=== PATIENT | male | born 1930 | race Caucasian/White ===

== ENCOUNTER 2017-05-17 10:59 | Observation (INO) | payer MEDICARE ==
[~2017-05-17] VITALS: Ht 165.1 cm; Wt 70.0 kg
[2017-05-17 11:04] VITALS: BP 185/81; PULSE 68; RESP 15; TEMP 98; O2SAT 100
[2017-05-17 11:26] VITALS: BP_SYST 174; BP_SYST 184; BP_SYST 196; BP_DIAS 74; BP_DIAS 80; RESP 18
[2017-05-17 11:28] VITALS: RESP 18; O2SAT 97
--- NOTE | 2017-05-17 11:58 | PD ---
HPI Chief Complaint: Dizziness Time Seen by Provider: 11:22 Travel History International Travel<30 days: No Contact w/Intl Traveler<30days: No Traveled to known affect area: No History of Present Illness HPI 86 y/o male states that he feels like he is floating above his body and like he' s gonna pass out especially when he stands up over the past couple of days. He denies any associated numbness, weakness, mentation change, pain, shortness of breath or any other concurrent complaints. He denies prior history of this. He states he has not been to the hospital for 20 years could see mainly helps take care of his . He states that he has no other modifying factors. Quality is floating. Severity is with movement. PFSH Past Medical History Hypertension: Yes Medical other: Yes (macular degeneration) Triglycerides - High: Yes Past Surgical History Surgical History: No Previous Surgery Social History Alcohol Use: Yes (1 -2 glasses wine daily) Tobacco Use: No Substance Use: No Allergies-Medications (Allergen,Severity, Reaction): Coded Allergies: No Known Allergies (Unverified , 05/17/17) Review of Systems Except as stated in HPI: all other systems reviewed are Neg Physical Exam Narrative GENERAL: Well-nourished, well-developed patient. SKIN: Warm and dry. HEAD: Normocephalic and atraumatic. EYES: No injection or drainage. ENT: No nasal drainage noted. NECK: Supple, trachea midline. CARDIOVASCULAR: Regular rate and rhythm RESPIRATORY: Breath sounds equal bilaterally. No accessory muscle use. GASTROINTESTINAL: Abdomen soft, non-tender, nondistended. EXTREMITIES: No edema. NEUROLOGICAL: Awake and alert. Motor and sensory grossly within normal limits. Normal speech. Rapid alternating intact, heel to khan intact Data Data Last Documented VS Vital Signs Date Time Temp Pulse Resp B/P Pulse Ox O2 Delivery O2 Flow Rate FiO2 05/17/17 11:28 18 97 Room Air 05/17/17 11:26 75 196/74 80 174/80 71 184/74 05/17/17 11:04 98.0 Orders Magnesium (Mg) (05/17/17 11:25) Phosphorus (Po4) (05/17/17 11:25) Complete Blood Count With Diff (05/17/17 11:25) Comprehensive Metabolic Panel (05/17/17 11:25) Urinalysis - C+S If Indicated (05/17/17 11:25) Act Partial Throm Time (Ptt) (05/17/17 11:25) Prothrombin Time / Inr (Pt) (05/17/17 11:25) Electrocardiogram (05/17/17 ) Iv Access Insert/Monitor (05/17/17 11:25) Ecg Monitoring (05/17/17 11:25) Oximetry (05/17/17 11:25) Ct Brain W/O Iv Contrast(Rout) (05/17/17 ) Ckmb (Isoenzyme) Profile (05/17/17 11:26) Troponin I (05/17/17 11:26) Chest, Single Ap (05/17/17 ) CKMB (05/17/17 11:40) CKMB% (05/17/17 11:40) Admit Order (Ed Use Only) (05/17/17 15:13) Labs Laboratory Tests Test 05/17/17 05/17/17 11:40 12:40 White Blood Count 7.8 TH/MM3 Red Blood Count 4.54 MIL/MM3 Hemoglobin 14.1 GM/DL Hematocrit 41.5 % Mean Corpuscular Volume 91.6 FL Mean Corpuscular Hemoglobin 31.1 PG Mean Corpuscular Hemoglobin 33.9 % Concent Red Cell Distribution Width 12.3 % Platelet Count 260 TH/MM3 Mean Platelet Volume 8.7 FL Neutrophils (%) (Auto) 68.2 % Lymphocytes (%) (Auto) 18.2 % Monocytes (%) (Auto) 8.5 % Eosinophils (%) (Auto) 2.6 % Basophils (%) (Auto) 2.5 % Neutrophils # (Auto) 5.3 TH/MM3 Lymphocytes # (Auto) 1.4 TH/MM3 Monocytes # (Auto) 0.7 TH/MM3 Eosinophils # (Auto) 0.2 TH/MM3 Basophils # (Auto) 0.2 TH/MM3 CBC Comment DIFF FINAL Differential Comment Prothrombin Time 11.1 SEC Prothromb Time International 1.0 RATIO Ratio Activated Partial 28.4 SEC Thromboplast Time Sodium Level 138 MEQ/L Potassium Level 3.8 MEQ/L Chloride Level 98 MEQ/L Carbon Dioxide Level 32.8 MEQ/L Anion Gap 7 MEQ/L Blood Urea Nitrogen 25 MG/DL Creatinine 1.12 MG/DL Estimat Glomerular Filtration 62 ML/MIN Rate Random Glucose 104 MG/DL Calcium Level 9.2 MG/DL Phosphorus Level 4.1 MG/DL Magnesium Level 2.2 MG/DL Total Bilirubin 0.7 MG/DL Aspartate Amino Transf 30 U/L (AST/SGOT) Alanine Aminotransferase 28 U/L (ALT/SGPT) Alkaline Phosphatase 89 U/L Total Creatine Kinase 188 U/L Creatine Kinase MB 2.7 NG/ML Troponin I LESS THAN 0.02 NG/ML Total Protein 8.0 GM/DL Albumin 4.2 GM/DL Urine Color YELLOW Urine Turbidity CLEAR Urine pH 5.5 Urine Specific [place] 1.018 Urine Protein NEG mg/dL Urine Glucose (UA) NEG mg/dL Urine Ketones NEG mg/dL Urine Occult Blood NEG Urine Nitrite NEG Urine Bilirubin NEG Urine Urobilinogen LESS THAN 2.0 MG/DL Urine Leukocyte Esterase NEG Urine RBC LESS THAN 1 /hpf Urine WBC 1 /hpf Urine Squamous Epithelial <1 /hpf Cells Microscopic Urinalysis Comment CULT NOT INDICATED MDM Medical Decision Making Medical Screen Exam Complete: Yes Emergency Medical Condition: Yes Medical Record Reviewed: Yes (pmh confirmed) Interpretation(s) EKG shows NSR, no ST elevation or depression, and no arrhythmias. No significant T-wave inversions. CBC & BMP Diagram 05/17/17 11:40 Last [address] 05/17/17 0000 Signed Impressions: Service Date/Time: Wednesday, May 17, 2017 13:24 - CONCLUSION: Cerebral atrophy and chronic ischemic small vessel vasculopathy. Nic Roberts MD Chest X-Ray 05/17/17 0000 Signed Impressions: Service Date/Time: Wednesday, May 17, 2017 12:08 - CONCLUSION: No acute disease. Nic Roberts MD Differential Diagnosis Anemia, renal failure, UTI, atypical cardiac, bleed Narrative Course Will check blood work, imaging and reevaluate ED workup without emergent process, patient agrees to observation for further workup Physician Communication Physician Communication Dr. Carpenter agrees to observation Diagnosis Primary Impression: Near syncope Admitting Information Admitting Physician Requests: Observation Oneyda Roman MD May 17, 2017 11:58
[2017-05-17 12:04] LABS: AUTOMATED NEUTROPHIL # 5.3 TH/MM3 (1.8-7.7); BASOPHIL # 0.2 TH/MM3 (0-0.2); BASOPHIL % 2.5 % (0.0-2.0); EOSINOPHIL # 0.2 TH/MM3 (0-0.4); EOSINOPHIL % 2.6 % (0.0-4.0); HEMATOCRIT 41.5 % (39.0-51.0); HEMO FLAGS DIFF FINAL; LYMPH % 18.2 % (9.0-44.0); LYMPHOCYTE # 1.4 TH/MM3 (1.0-4.8); MEAN CELL VOLUME 91.6 FL (80.0-100.0); MEAN CORPUSCULAR HEMOGLOBIN 31.1 PG (27.0-34.0); MEAN CORPUSCULAR HGB CONC 33.9 % (32.0-36.0); MONO % 8.5 % (0.0-8.0); NEUT % 68.2 % (16.0-70.0); PLATELET COUNT 260 TH/MM3 (150-450); RED BLOOD COUNT 4.54 MIL/MM3 (4.50-5.90); RED CELL DISTRIBUTION WIDTH 12.3 % (11.6-17.2); WHITE BLOOD COUNT 7.8 TH/MM3 (4.0-11.0)
[2017-05-17 12:13] LABS: APTT (PATIENT) 28.4 SEC (24.3-30.1); PROTHROMBIN TIME - PATIENT 11.1 SEC (9.8-11.6)
[2017-05-17 12:25] LABS: ALKALINE PHOSPHATASE 89 U/L (45-117); TOTAL BILIRUBIN ADULT 0.7 MG/DL (0.2-1.0)
[2017-05-17 12:29] LABS: ALT (GPT) 28 U/L (12-78); ANION GAP 7 MEQ/L (5-15); AST (GOT) 30 U/L (15-37); BICARBONATE 32.8 MEQ/L (21.0-32.0); BLOOD UREA NITROGEN 25 MG/DL (7-18); CHLORIDE 98 MEQ/L (98-107); GLOMERULAR FILTRATION RATE 62 ML/MIN (>89); MAGNESIUM 2.2 MG/DL (1.5-2.5); POTASSIUM 3.8 MEQ/L (3.5-5.1); SODIUM (NA) 138 MEQ/L (136-145)
--- NOTE | 2017-05-17 12:30 | RADRPT ---
EXAM DATE/TIME: 05/17/2017 12:08 [facility] COMPARISON: No previous studies available for comparison. INDICATIONS : Palpitations/ Dizziness x 2 days MEDICAL HISTORY : Hypertension. Hypercholesterolemia. SURGICAL HISTORY : None. ENCOUNTER: Initial ACUITY: 1 day PAIN SCORE: 0/10 LOCATION: Bilateral chest FINDINGS: A single view of the chest demonstrates the lungs to be symmetrically aerated without evidence of mas s, infiltrate or effusion. The cardiomediastinal contours are unremarkable. Osseous structures are intact. CONCLUSION: No acute disease. Nic Roberts MD on May 17, 2017 at 12:28 Board Certified Radiologist. This report was verified electronically.
[2017-05-17 13:02] LABS: CREATINE KINASE 188 U/L (39-308)
[2017-05-17 13:11] LABS: BLOOD, URINE NEG (NEG); GLUCOSE,URINE NEG (NEG); KETONE, URINE NEG (NEG); NITRITE,URINE NEG (NEG); PH, URINE 5.5 (5.0-8.5); SQUAMOUS EPITHELIAL CELL URINE <1 /hpf (0-5); URINE COLOR YELLOW (YELLW/STRAW)
[2017-05-17 13:14] LABS: CKMB 2.7 NG/ML (0.5-3.6)
[2017-05-17 13:15] LABS: COMMENT (UR) CULT NOT INDICATED; CULTURE IF INDICATED CULT NOT INDICATED
--- NOTE | 2017-05-17 13:33 | RADRPT ---
EXAM DATE/TIME: 05/17/2017 13:24 [facility] COMPARISON: No previous studies available for comparison. INDICATIONS : Dizziness for two days. RADIATION DOSE: 39.54 CTDIvol (mGy) MEDICAL HISTORY : Hypertension. SURGICAL HISTORY : None. ENCOUNTER: Initial ACUITY: 2 days PAIN SCALE: 0/10 LOCATION: Bilateral head TECHNIQUE: Multiple contiguous axial images were obtained of the head. Using automated exposure control and adj ustment of the mA and/or kV according to patient size, radiation dose was kept as low as reasonably a chievable to obtain optimal diagnostic quality images. DICOM format image data is available electro nically for review and comparison. FINDINGS: CEREBRUM: There is cerebral and CT. Areas of low-attenuation are seen throughout the periventricular white corrina er. No evidence of midline shift, mass lesion, hemorrhage or acute infarction. No extra-axial fluid collections are seen. POSTERIOR FOSSA: The cerebellum and brainstem are intact. The 4th ventricle is midline. The cerebellopontine angle i s unremarkable. EXTRACRANIAL: The visualized portion of the orbits is intact. SKULL: The calvaria is intact. No evidence of skull fracture. CONCLUSION: Cerebral atrophy and chronic ischemic small vessel vasculopathy. Nic Roberts MD on May 17, 2017 at 13:31 Board Certified Radiologist. This report was verified electronically.
[2017-05-17] MEDS ORDERED: NALOXONE HCL 0.4 MG/ML AMP IV PRN (17:00)
[2017-05-17] MEDS ORDERED: MAGNESIUM HYDROXIDE SUSP 30 ML CUP PO PRN (17:00)
[2017-05-17] MEDS ORDERED: ACETAMINOPHEN 325 MG TAB PO PRN (17:00)
[2017-05-17] MEDS ORDERED: SODIUM CHLORIDE 0.9% FLUSH 10 ML FLUSH IV FLUSH PRN (17:00)
[2017-05-17] MEDS ORDERED: ONDANSETRON HCL 4 MG/2 ML VIAL IVP PRN (17:00)
[2017-05-17 17:30] VITALS: BP 172/91; PULSE 91; RESP 18; O2SAT 99
[2017-05-17] MEDS ORDERED: MECLIZINE HCL 25 MG TAB PO PRN (17:30)
[2017-05-17] MEDS: SODIUM CHLOR 0.9% 1000 ML INJ 1,000 ML IV SCH (17:36)
--- NOTE | 2017-05-17 18:14 | HHI.PR ---
Objective Objective Results - Vital Signs Date Time Temp Pulse Resp B/P Pulse Ox O2 Delivery O2 Flow Rate FiO2 05/17/17 11:28 18 97 Room Air 05/17/17 11:26 75 18 196/74 80 174/80 71 184/74 05/17/17 11:20 18 18 98 Room Air 05/17/17 11:04 98.0 68 15 185/81 100 Result Diagram: 05/17/17 1140 05/17/17 1140 A/P Assessment and Plan [id number] dizziness, near syncope HTN , uncontrolled, accelerated Possible TIA/ CVA, R/O stress Julissa Eli May 17, 2017 18:14
[2017-05-17] MEDS ORDERED: METO50TA PO (18:41)
[2017-05-17] MEDS ORDERED: LATA0.002 EACH EYE (18:41)
[2017-05-17] MEDS ORDERED: HYDR25TA5 PO (18:41)
[2017-05-17] MEDS ORDERED: ASPI-110 PO (18:41)
[2017-05-17] MEDS ORDERED: SIMV40TA PO (18:41)
--- NOTE | 2017-05-17 19:05 | RADRPT ---
EXAM DATE/TIME: 05/17/2017 18:40 [facility] COMPARISON: CT BRAIN W/O CONTRAST, May 17, 2017, 13:24. INDICATIONS : Near syncope. MEDICAL HISTORY : None. SURGICAL HISTORY : None. ENCOUNTER: Initial ACUITY: 1 day PAIN SCORE: 0/10 LOCATION: cranial TECHNIQUE: Multiplanar, multisequence MRI of the brain was performed without contrast. FINDINGS: There is no evidence for intracranial hemorrhage, mass effect, mass lesions, edema, or extra-axial fl uid collections. There are no signs of acute infarction for technique. The diffusion portion is unre markable. Moderate degree of brain atrophy is seen. Moderate to significant periventricular white ma tter changes are seen nonspecific mostly consistent with chronic small vessel ischemic changes. CONCLUSION: Chronic atrophic and small vessel ischemic changes without any evidence for acut e hemorrhage or mass effect. Bhavani Rodriguez MD on May 17, 2017 at 19:00 Board Certified Radiologist. This report was verified electronically.
--- NOTE | 2017-05-17 19:10 | MH ---
cc: FIDELIA CARPENTER MD DATE OF ADMISSION: 05/17/[address] Carpenter present. CHIEF COMPLAINT Dizziness, near syncopal episodes. Travel in the last 30 days none. HISTORY OF PRESENT ILLNESS This is a pleasant 86 year old white male who has been in his usual state of health up until the past few days. He is an avid walker, usually walks four miles a day and tries to do it in the morning time when it is cool. He has noted extreme heat and sweating during walk, but he denies any chest pain, no shortness of breath and no dizziness during activity. He states that his dizziness seems to occur when he is lying in the bed and when he attempts to sit up. He states that he feels like he is floating with extreme dizziness but states that the room is holding still. The patient states that he has been healthy. He has not had any recent hospitalizations or tests. The patient does admit to some extra stressors in his life. He takes care of a who has been sick some. Other than that, he denies any headaches, no problems voiding. No problems with his bowels. No associated numbness, weakness. No altered mental status. No recent weight gain or weight loss. PAST MEDICAL HISTORY 1. Hypertension controlled with medications. 2. Macular degeneration 3. Hyperlipidemia PAST SURGICAL HISTORY None. ALLERGIES No known. MEDICATIONS Not listed. We will follow up. The patient is currently gone for MRI. SOCIAL HISTORY The patient is , lives with his . Denies any tobacco use. No illicit drugs. Does drink 1-2 glasses of wine socially and sometimes daily. REVIEW OF SYSTEMS As 12 point review was obtained. Positives noted in History of Present Illness which include his dizziness for the past couple of days. He notes he feels the sensation of his body moving or floating, but the room is standing still. He notes this sensation chiefly when he moves from a lying flat to a sitting up position. No palpitations. No chest pain. No shortness of breath. Any other systems negative or unremarkable. PHYSICAL EXAMINATION VITAL SIGNS: Temperature 98, pulse 68-71, respirations 18, blood pressure lying 196/74, sitting 174/80, standing 184/74. 22 point difference sitting and lying supine. O2 saturation 97 currently on room air. GENERAL: Well-nourished, well-developed elderly white male who looks younger than his stated age resting in the bed. He is alert, oriented, talkative and cooperative. SKIN: [place], warm and dry. HEENT: Normocephalic, atraumatic. Pupils equal, round, reactive to light and accommodation. Hand drips are equal. Mucous membranes are slightly dry. No scleral icterus. NECK: Supple. CARDIOVASCULAR: S1, S2, rhythm is regular with some irregularity to it. No audible murmurs, rubs or gallops. RESPIRATORY: Essentially clear anteriorly and posteriorly with no wheezing, rales or rhonchi. GASTROINTESTINAL: Abdomen is soft, nontender, nondistended. Bowel sounds are soft and active. EXTREMITIES: Moves with purpose. No obvious edema. NEUROLOGIC: Awake, alert and oriented, a good historian. Speech is clear. Hand home day care provider are equal. PSYCHIATRIC: Mood and affect are appropriate. LABORATORY DATA Sodium 138, potassium 3.8, chloride 98, carbon dioxide 32.8, anion gap 7, BUN 25, creatinine 1.12. GFR 62. Random glucose 104. Calcium 9.2. Phosphorous 4.1. Magnesium 2.2. Bilirubin 0.7. AST 30, ALT 28, alkaline phosphatase 89. Total creatine kinase 188. CK MB 2.7, troponin less than 0.02. Total protein 8. Albumin 4.2. PT INR 1. Urine is yellow, clear. PH is 5.5 specific gravity 1.018. He is negative for protein, glucose, ketones, occult blood, nitrites, bilirubin and leukocyte esterase. Urobilinogen is less than 2. Culture is not indicated. IMAGING STUDIES So far show head CT - cerebral atrophy, chronic ischemia, small vessel vasculopathy. Chest x-ray - no acute disease. MRI of the head is currently being done and pending. ASSESSMENT 1. Dizziness with near syncopal episode. 2. Acute kidney injury with dehydration. 3. Hypertension, uncontrolled, accelerated. 4. Possible transient ischemic attack, possible cerebrovascular accident, rule out 5. Social alcohol usage. PLAN Admit initially for observation. ECG monitoring and IV access. Currently, the patient is in a sinus rhythm but he is having frequent PACs and PVCs. We will keep him on telemetry and/or his ECG monitoring. We will get a 2-D echocardiogram. The patient garcia been placed on B12, folate, bowel regimen, stool softeners and laxatives if warranted. Heart healthy diet. Out of bed only with assistance. Vital signs will be q 4 and as warranted. We will give Vasotec IV for systolic any blood pressure over 180, diastolic over 195. Currently supine systolic blood pressure is 196. Standing 184. The patient is currently receiving an MRI. He has been put on Antevert as needed for any dizziness. Educated and discussed on his four mile walks and maintaining his hydration with water, juice and/or possible Gatorade. Currently, he is receiving normal saline for hydration. Once tests are completed, the patient's plan of care will be based on the findings and his response and symptoms. He is full code, full aggressive care and we will follow. Fidelia Carpenter MD JP/ /6:00 PM /6:31 PM pt was seen and examined by undersigned on day of admission chart reviewed dw pt abdiel rasmussen about plan of care abdiel rn MICHELLE
[2017-05-17 20:45] VITALS: BP 187/86; PULSE 91; RESP 16; TEMP 98.2; O2SAT 97
[2017-05-17] MEDS: SODIUM CHLORIDE 0.9% FLUSH 10 ML FLUSH IV FLUSH SCH (21:00)
[2017-05-17] MEDS: ENALAPRILAT 1.25 MG/ML VIAL IV PUSH PRN (21:55)
[2017-05-17 23:30] VITALS: BP 169/71; PULSE 101; RESP 18; TEMP 98.4; O2SAT 100
[2017-05-18] MEDS: SODIUM CHLOR 0.9% 1000 ML INJ 1,000 ML IV SCH ×2 (03:26→23:00)
[2017-05-18 03:37] VITALS: BP 116/58; PULSE 81; RESP 18; TEMP 98.1; O2SAT 96
[2017-05-18 05:22] LABS: AUTOMATED NEUTROPHIL # 6.3 TH/MM3 (1.8-7.7); BASOPHIL % 0.6 % (0.0-2.0); EOSINOPHIL # 0.1 TH/MM3 (0-0.4); EOSINOPHIL % 1.1 % (0.0-4.0); HEMATOCRIT 39.6 % (39.0-51.0); HEMO FLAGS DIFF FINAL; LYMPH % 14.6 % (9.0-44.0); LYMPHOCYTE # 1.2 TH/MM3 (1.0-4.8); MEAN CELL VOLUME 90.4 FL (80.0-100.0); MEAN CORPUSCULAR HEMOGLOBIN 31.6 PG (27.0-34.0); MONO % 8.2 % (0.0-8.0); NEUT % 75.5 % (16.0-70.0); PLATELET COUNT 209 TH/MM3 (150-450); RED BLOOD COUNT 4.38 MIL/MM3 (4.50-5.90); RED CELL DISTRIBUTION WIDTH 12.3 % (11.6-17.2); WHITE BLOOD COUNT 8.3 TH/MM3 (4.0-11.0)
[2017-05-18 06:24] LABS: BICARBONATE 30.8 MEQ/L (21.0-32.0)
[2017-05-18 06:29] LABS: POTASSIUM 2.7 MEQ/L (3.5-5.1)
--- NOTE | 2017-05-18 07:25 | HHI.PR ---
Objective Objective Results - Vital Signs Date Time Temp Pulse Resp B/P Pulse Ox O2 Delivery O2 Flow Rate FiO2 05/18/17 03:37 98.1 81 18 116/58 96 05/17/17 23:30 98.4 101 18 169/71 100 05/17/17 20:45 98.2 91 16 187/86 97 05/17/17 17:30 91 18 172/91 99 Room Air 05/17/17 11:28 18 97 Room Air 05/17/17 11:26 75 18 196/74 80 174/80 71 184/74 05/17/17 11:20 18 18 98 Room Air 05/17/17 11:04 98.0 68 15 185/81 100 I/O 05/17/17 05/17/17 05/17/17 05/18/17 05/18/17 05/18/17 07:00 15:00 23:00 07:00 15:00 23:00 Output Total 600 ml Balance -600 ml Output Urine Total 600 ml # Voids 3 Result Diagram: 05/18/17 0433 05/18/17 0433 Other Results Last Impressions Head CT 05/17/17 0000 Signed Impressions: Service Date/Time: Wednesday, May 17, 2017 13:24 - CONCLUSION: Cerebral atrophy and chronic ischemic small vessel vasculopathy. Nic Roberts MD Chest X-Ray 05/17/17 0000 Signed Impressions: Service Date/Time: Wednesday, May 17, 2017 12:08 - CONCLUSION: No acute disease. Nic Roberts MD Brain MRI 05/17/17 0000 Signed Impressions: Service Date/Time: Wednesday, May 17, 2017 18:40 - CONCLUSION: Chronic atrophic and small vessel ischemic changes without any evidence for acute hemorrhage or mass effect. Bhavani Rodriguez MD Medications and IVs Administered Medications Medications (Trade) Dose Ordered Sig/Sonam Route PRN Reason Start Time Stop Time Status Last Admin Dose Admin Sodium Chloride (NS 1000 ml Inj) 1,000 ml @ 100 mls/hr Q10H IV 05/17/17 17:00 05/18/17 03:26 Enalaprilat (Vasotec Inj) 1.25 mg Q6H PRN IV PUSH SBP>180, DBP>95 05/17/17 18:00 05/17/17 21:55 Physical Exam Physical Exam PHYSICAL EXAMINATION GENERAL: This is a well-developed, well-nourished male who appears to be in no acute distress. He is alert and awake, HEAD: Normocephalic without any lesion or mass noted. Facial features appear symmetric. OROPHARYNGEAL: Oropharynx without erythema or edema. NECK: Supple. No nuchal rigidity or lymphadenopathy. Trachea midline without deviation. CARDIAC: Regular rhythm, regular rate, S1 and S2 are heard. LUNGS: Clear to auscultation bilaterally. No use of accessory muscles on inspiration or expiration. ABDOMEN: Soft, nontender, no organomegaly or masses. Bowel sounds are heard in all four quadrants. No rebound. No guarding. EXTREMITIES: no edema. Pulses equal bilateral. NEUROLOGICAL: Patient mood and affect appropriate. No focal deficit SKIN:Warm and moist A/P Assessment and Plan dizziness, near syncope HTN , uncontrolled, accelerated Possible TIA/ CVA, R/O stress Social ETOH usage Julissa Eli May 18, 2017 07:25
[2017-05-18 07:43] VITALS: BP 142/70; PULSE 93; RESP 18; TEMP 96.8; O2SAT 97
[2017-05-18] MEDS ORDERED: POTASSIUM CHLOR 40 MEQ PREMIX 100 ML IV SCH (07:45)
[2017-05-18] MEDS ORDERED: POTASSIUM CHLORIDE 20 MEQ CONTROLLED RELEASE TAB PO ONE ×2 (07:45)
[2017-05-18] MEDS ORDERED: POTASSIUM CHLOR 40 MEQ PREMIX 100 ML IV ONE (08:00)
[2017-05-18 08:25] VITALS: PULSE 98
[2017-05-18] MEDS: SODIUM CHLORIDE 0.9% FLUSH 10 ML FLUSH IV FLUSH SCH ×2 (09:00→21:00)
--- NOTE | 2017-05-18 15:09 | EKG ---
Date Performed: 05/17/2017 Time Performed: 11:21:01 PTAGE: 86 years EKG: Sinus rhythm WITH FIRST DEGREE AV BLOCK ABNORMAL ECG NO PREVIOUS TRACING DOCTOR: Edmundo Caicedo Interpretating Date/Time 05/18/2017 15:08:40
[2017-05-18 18:47] VITALS: BP 168/48; PULSE 80; RESP 20; TEMP 96.8; O2SAT 95
[2017-05-18 21:28] VITALS: BP 141/75; PULSE 85; RESP 18; TEMP 98.1; O2SAT 97
[2017-05-19] MEDS: SODIUM CHLOR 0.9% 1000 ML INJ 1,000 ML IV SCH ×2 (02:19→09:00)
[2017-05-19 05:32] VITALS: BP 183/79; PULSE 95; RESP 18; TEMP 98.8; O2SAT 97
[2017-05-19 05:58] LABS: BICARBONATE 29.4 MEQ/L (21.0-32.0); POTASSIUM 3.3 MEQ/L (3.5-5.1)
[2017-05-19] MEDS: ENALAPRILAT 1.25 MG/ML VIAL IV PUSH PRN (06:18)
[2017-05-19 07:44] VITALS: BP_SYST 145; BP_SYST 171; BP_SYST 184; BP_DIAS 74; BP_DIAS 76; BP_DIAS 84; PULSE 97; RESP 20; TEMP 97.8; TEMP 98.6; O2SAT 96
[2017-05-19] MEDS ORDERED: POTASSIUM CHLORIDE 20 MEQ CONTROLLED RELEASE TAB PO ONE (08:15)
[2017-05-19] MEDS: SODIUM CHLORIDE 0.9% FLUSH 10 ML FLUSH IV FLUSH SCH (09:22)
--- NOTE | 2017-05-19 10:07 | HHI.PR ---
Subjective Remarks Alert oriented Stressed over 's Needing to discharge as soon as possible he states (Julissa Eli) Objective Objective Results - Vital Signs Date Time Temp Pulse Resp B/P (MAP) Pulse Ox O2 Delivery O2 Flow Rate FiO2 05/19/17 07:44 98.6 97 20 171/74 (106) 96 145/76 (99) 184/84 (117) 05/19/17 05:32 98.8 95 18 183/79 (113) 97 05/18/17 21:28 98.1 85 18 141/75 (97) 97 05/18/17 18:47 96.8 80 20 168/48 (88) 95 I/O 05/18/17 05/18/17 05/18/17 05/19/17 05/19/17 05/19/17 07:00 15:00 23:00 07:00 15:00 23:00 Output Total 600 ml 600 ml Balance -600 ml -600 ml Output Urine Total 600 ml 600 ml # Voids 3 (Julissa Eli) Result Diagram: 05/18/17 0433 05/19/17 0505 ROS General: Other (10 point ROS done positives noted) Neuro/MS: Other (no syncope, feels better since he is hydrated) (Julissa Eli) Physical Exam Physical Exam PHYSICAL EXAMINATION GENERAL: This is a male who appears to be in no acute distress. He is alert and awake, mildly anxious HEAD: Normocephalic without any lesion or mass noted. Facial features appear symmetric. OROPHARYNGEAL: Oropharynx without erythema or edema. NECK: Supple. No nuchal rigidity or lymphadenopathy. Trachea midline without deviation. CARDIAC: Regular rhythm, regular rate, S1 and S2 are heard. LUNGS: Clear to auscultation bilaterally. No use of accessory muscles on inspiration or expiration. ABDOMEN: Soft, nontender, no organomegaly or masses. Bowel sounds are heard in all four quadrants. No rebound. No guarding. EXTREMITIES: No lower extremity edema. Pulses equal bilateral. NEUROLOGICAL: Patient mood and affect appropriate. SKIN:Warm and moist (Julissa Eli) A/P Assessment and Plan dizziness, near syncope Probable secondary to dehydration, patient walks 4 miles a day, encouraged to continue walking but increase by mouth fluids, Gatorade, juices, and pain in his hydration HTN , uncontrolled, accelerated Medical management, increased stressors during this hospital stay Possible TIA/ CVA, R/O So far testing has been negative, patient states that he gets up too quick sometimes, but has no dizziness no syncopal spells while ambulating. stress abruptly while attempting to get in the car to come over here and see on admission. Patient is very stressed and needs to discharge. Echocardiogram done this morning kids are coming in from out of town, Social ETOH usage Encouraged to monitor his usage Discussed with patient Discussed with nurse Discuss with Dr. aldridge, , seen on his behalf Discharge plan for today (Julissa Eli) Assessment and Plan PT IS SEEN & EXAMINED CHART REVIEWED feels well/anxious to go home No more dizziness BP running high echo done [p] resume BB replace kcl ambulating in the room d/w Julissa ok to d/c home see [facility] see orders f/u echo report at pcp office f/u pcp f/u card (Charlene Aldridge MD) Julissa Eli May 19, 2017 10:07 Charlene Aldridge MD May 19, 2017 11:35
[2017-05-19] MEDS ORDERED: METOPROLOL TARTRATE 50 MG TAB PO ONE (11:30)
[2017-05-19] MEDS ORDERED: LISI-519 PO (11:41)
--- NOTE | 2017-05-19 15:50 | ECHRPT ---
Indication: near syncope CONCLUSIONS Normal left ventricular size. Estimated EF 50% Wall thickness is normal. No regional wall motion abnormalities are present. The right ventricular size is normal. The right ventricular systoilc function is normal. The left atrial size is upper limits of normal. [id number] mitral valve regurgitation. There is trace tricuspid valve regurgitation. The pulmonary valve is not well visualized. BP: 183 / 79 HR: 95 Rhythm: MEASUREMENTS (Male / Female) Normal Values Technical Quality:Good 2D ECHO LV Diastolic Diameter PLAX 4.2 cm 4.2 - 5.9 / 3.9 - 5.3 cm LV Systolic Diameter PLAX 3.0 cm IVS Diastolic Thickness 0.9 cm 0.6 - 1.0 / 0.6 - 0.9 cm LVPW Diastolic Thickness 1.0 cm 0.6 - 1.0 / 0.6 - 0.9 cm LV Relative Wall Thickness 0.4 RV Internal Dim ED PLAX 2.5 cm M-MODE Aortic Root Diameter MM 2.7 cm LA Systolic Diameter MM 4.2 cm LA Ao Ratio MM 1.6 AV Cusp Separation MM 1.7 cm FINDINGS LEFT VENTRICLE The left ventricular systolic function is normal with an estimated ejection fraction in the range of 60-65%. Normal left ventricular size. Wall thickness is normal. No regional wall motion abnormalities are present. RIGHT VENTRICLE The right ventricular size is normal. The right ventricular systoilc function is normal. LEFT ATRIUM The left atrial size is upper limits of normal. RIGHT ATRIUM The right atrial size is normal. ATRIAL SEPTUM Normal atrial septal thickness without atrial level shunting by limited color doppler interrogation. AORTA The aortic root and proximal ascending aorta are normal in size on limited imaging. MITRAL VALVE Structurally normal mitral valve. [id number] mitral valve regurgitation. AORTIC VALVE Trileaflet aortic valve. TRICUSPID VALVE Structurally normal tricuspid valve. There is trace tricuspid valve regurgitation. PULMONARY VALVE The pulmonary valve is not well visualized. VESSELS The inferior vena cava is normal in size. PERICARDIUM No pericardial effusion. Rip Mayers MD (Electronically Signed) Final Date:19 May 2017 15:50
--- NOTE | 2017-05-19 18:35 | HHI.DS ---
Discharge Summary Admission Date May 17, 2017 at 15:15 Discharge Date: May 19, 2017 Admitting Diagnosis near syncope Brief History This was a pleasant 86 year old white male who had been in his usual state of health up until the past few days. He was an avid walker, usually walks four miles a day and tries to do it in the morning time when it was cool. He had noted extreme heat and sweating during walk, but he denied any chest pain, no shortness of breath and no dizziness during activity. He stated that his dizziness seemed to occur when he is lying in the bed and when he attempts to sit up. He stated that he feels like he was floating with extreme dizziness but stated that the room is holding still. CBC/BMP: 05/18/17 0433 05/19/17 0505 Significant Findings Laboratory Tests Test 05/17/17 11:40 05/17/17 12:40 05/18/17 04:33 05/18/17 17:05 Monocytes (%) (Auto) 8.5 % (0.0-8.0) 8.2 % (0.0-8.0) Basophils (%) (Auto) 2.5 % (0.0-2.0) Blood Urea Nitrogen 25 MG/DL (7-18) Carbon Dioxide Level 32.8 MEQ/L (21.0-32.0) Estimat Glomerular Filtration Rate 62 ML/MIN (>89) 86 ML/MIN (>89) Troponin I LESS THAN 0.02 NG/ML Folate GREATER THAN 20.0 NG/ML Red Blood Count 4.38 MIL/MM3 (4.50-5.90) Neutrophils (%) (Auto) 75.5 % (16.0-70.0) Calcium Level 8.2 MG/DL (8.5-10.1) Potassium Level 2.7 MEQ/L (3.5-5.1) 3.4 MEQ/L (3.5-5.1) Test 05/19/17 05:05 Calcium Level 8.0 MG/DL (8.5-10.1) Potassium Level 3.3 MEQ/L (3.5-5.1) Imaging Last Impressions Head CT 05/17/17 0000 Signed Impressions: Service Date/Time: Wednesday, May 17, 2017 13:24 - CONCLUSION: Cerebral atrophy and chronic ischemic small vessel vasculopathy. Nic Roberts MD Chest X-Ray 05/17/17 0000 Signed Impressions: Service Date/Time: Wednesday, May 17, 2017 12:08 - CONCLUSION: No acute disease. Nic Roberts MD Brain MRI 05/17/17 0000 Signed Impressions: Service Date/Time: Wednesday, May 17, 2017 18:40 - CONCLUSION: Chronic atrophic and small vessel ischemic changes without any evidence for acute hemorrhage or mass effect. Bhavani Rodriguez MD PE at Discharge GENERAL: male who appeared to be in no acute distress. alert and awake, mildly anxious HEAD: Normocephalic without any lesion or mass noted. Facial features appear symmetric. OROPHARYNGEAL: Oropharynx without erythema or edema. NECK: Supple. No nuchal rigidity or lymphadenopathy. Trachea midline without deviation. CARDIAC: Regular rhythm, regular rate, S1 and S2 are heard. LUNGS: Clear to auscultation bilaterally. No use of accessory muscles on inspiration or expiration. ABDOMEN: Soft, nontender, no organomegaly or masses. Bowel sounds are heard in all four quadrants. No rebound. No guarding. EXTREMITIES: No lower extremity edema. Pulses equal bilateral. NEUROLOGICAL: Patient mood and affect appropriate. Hospital Course These are the diagnoses that were used to treat this patient during his recent hospital stay dizziness, near syncope Probable secondary to dehydration, patient walks 4 miles a day, encouraged to continue walking but increase by mouth fluids, Gatorade, juices, and pain in his hydration HTN , uncontrolled, accelerated Medical management, increased stressors during this hospital stay Possible TIA/ CVA, R/O So far testing has been negative, patient states that he gets up too quick sometimes, but has no dizziness no syncopal spells while ambulating. stress abruptly while attempting to get in the car to come over here and see on admission. Patient is very stressed and needs to discharge. Echocardiogram done this morning kids are coming in from out of town, Social ETOH usage Encouraged to monitor his usage Was seen and examined per Dr. Oly bourgeois and thought to be medical stable to go home. Patient will follow up with his PCP and agreed to take it easy during this difficult time at home with his 's . feels well/anxious to go home No more dizziness BP running high echo done [p] resume BB replace kcl Pt Condition on Discharge: Stable Discharge Disposition: Discharge Home Discharge Instructions DIET: Follow Instructions for: Heart Healthy Diet Fluid Restrictions: none Activities you can perform: Weight Bearing as Neva Other Activity Instructions: fall precautions Follow up Referrals: PCP Follow-up - 3-5 Days New Medications: Lisinopril (Lisinopril) 5 Mg Tab 5 MG PO DAILY for Blood Pressure Management, #30 TAB 0 Refills Continued Medications: Aspirin DR (Aspirin 81) 81 Mg Tabdr 81 MG PO DAILY, TAB 0 Refills Latanoprost Opth Drops (Latanoprost Opth Drops) 0.005% Drops 1 DROP EACH EYE HS for Glaucoma, #2.5 ML 0 Refills Refrigerate until opened. Metoprolol Tartrate (Metoprolol Tartrate) 50 Mg Tab 50 MG PO BID, #60 TAB 0 Refills Simvastatin (Simvastatin) 40 Mg Tab 40 MG PO HS for Cholesterol Management, #30 TAB 0 Refills Discontinued Medications: Hydrochlorothiazide (Hydrochlorothiazide) 25 Mg Tab 25 MG PO DAILY, #30 TAB 0 Refills Julissa Eli May 19, 2017 18:35
[2017-05-19] MEDS ORDERED: METOPROLOL TARTRATE 50 MG TAB PO SCH (21:00)
== END 2017-05-19 13:29 | disposition home or self-care (01) ==
LOC: NEPC 10:59 → NEDA 15:15 → NEPGCP 20:31
PROVIDERS: ADMIT Specialist; ATTEND Specialist
DX: R55 Syncope and collapse (principal); E86.0 Dehydration; I10 Essential (primary) hypertension; H35.30 Unspecified macular degeneration; E78.5 Hyperlipidemia, unspecified; N17.9 Acute kidney failure, unspecified; I44.0 Atrioventricular block, first degree; I49.3 Ventricular premature depolarization; Z79.899 Other long term (current) drug therapy
CPT/HCPCS: 70450; 70551; 71010; 80048; 80053; 81001; 82550; 82552; 82607; 82746; 83735; 84100; 84132; 84484; 85025; 85610; 85730; 93005; 93306; 96361; 96374; 99285; G0378; J7030